=== PATIENT | female | born 1975 | race Caucasian/White ===

== ENCOUNTER 2016-11-04 21:15 | Emergency (ER) ==
[2016-11-04 21:37] VITALS: BP 128/88; TEMP 100; BMI 52.7
[2016-11-04] MEDS ORDERED: BACTRIM DS 800/160 MG PO STA (21:39)
[2016-11-04] MEDS ORDERED: TYLENOL PO STA (21:39)
--- NOTE | 2016-11-04 21:43 | ED.PDOC ---
General ED Provider: Dr. ALMITA CHICAS Chief Complaint: Allergic Reaction Stated Complaint: Patient had Mri with IV contrast yesterday @[facility], she started having some pain and itching and after some time, the right hand was red and warm, and today the redness getting up in arm, more pain in hand. Time Seen by Physician: 21:38 Mode of Arrival: Walk-In Information Source: Patient Primary Care Provider: ANDRY YANG Nursing and Triage Documentation Reviewed and Agree: Yes Review of Systems - Review Of Systems Constitutional: Reports: No symptoms Eyes: Reports: No symptoms Ears, Nose, Mouth, Throat: Reports: No symptoms Respiratory: Reports: No symptoms Cardiac: Reports: No symptoms GI: Reports: No symptoms : Reports: No symptoms Musculoskeletal: Reports: No symptoms Skin: Reports: Change in color, Lesions, Rash Neurological: Reports: No symptoms Endocrine: Reports: No symptoms Hematologic/Lymphatic: Reports: No symptoms All Other Systems: Reviewed and Negative Past Medical History - Past Medical History Previously Healthy: No Endocrine: Reports: None Cardiovascular: Reports: Hypertension Respiratory: Reports: COPD Hematological: Reports: None Gastrointestinal: Reports: None Genitourinary: Reports: None Neuro/Psych: Reports: None Musculoskeletal: Reports: None Cancer: Reports: None Last Menstrual Period: hyst 11 yrs ago - Surgical History General Surgical History: Reports: None - Family History Family History: Reports: None - Social History Smoking Status: Never smoker Hx Substance Use: No Alcohol Screening: None - Immunizations Tetanus Shot up to Date: Yes Physical Exam - Physical Exam Appearance: Well-appearing, Obese Eyes: VIRIDIANA, EOMI, Conjunctiva clear ENT: Ears normal, Nose normal, Oropharynx normal Respiratory: Airway patent, Breath sounds clear, Breath sounds equal, Respirations nonlabored Cardiovascular: RRR, Pulses normal, No rub, No murmur GI/: Soft, Nontender, No masses, Bowel sounds normal, No Organomegaly Musculoskeletal: ROM intact, No edema, No calf tenderness, Limited ROM (rt hand dorsum, has some red spots, tender to touch.) Skin: Warm, Dry, Normal color Neurological: Sensation intact, Motor intact, Reflexes intact, Cranial nerves intact, Alert, Oriented Psychiatric: Affect appropriate, Mood appropriate Critical Care Note - Critical Care Note Total Time (mins): 0 Course - Course Hematology/Chemistry: 11/04/16 21:40 Orders, Labs, Meds: Lab Review 11/04/16 21:40 WBC 4.80 RBC 5.20 Hgb 13.4 Hct 41.1 MCV 79.0 L MCH 25.8 L MCHC 32.6 RDW Coeff of Don 17.0 H Plt Count 157 Immature Gran % (Auto) 0.2 Neut % (Auto) 59.7 Lymph % (Auto) 25.8 [place] % (Auto) 8.1 Eos % (Auto) 5.6 Baso % (Auto) 0.6 Immature Gran # (Auto) 0.0 Neut # 2.9 Lymph # 1.2 [place] # 0.4 Eos # 0.3 Baso # 0.0 Orders Category Date Time Status CBC W/ AUTO DIFF Stat LAB 11/04/16 21:40 Completed COMPREHENSIVE METABOLIC PANEL Stat LAB 11/04/16 21:40 Received Acetaminophen [Tylenol] MEDS 11/04/16 21:39 Discontinued 500 mg PO ONCE STA Sulfamethoxazole/Trimethoprim [Bactrim Ds 800/160 mg] MEDS 11/04/16 21:39 Discontinued 1 tab PO ONCE STA Medications Discontinued Medications Generic Name Dose Route Start Last Admin Trade Name Freq PRN Reason Stop Dose Admin Acetaminophen 500 mg 11/04/16 21:39 11/04/16 21:48 Tylenol PO 11/04/16 21:40 500 mg ONCE STA Administration Trimethoprim/Sulfamethoxazole 1 tab 11/04/16 21:39 11/04/16 21:48 Bactrim Ds 800/160 Mg PO 11/04/16 21:40 1 tab ONCE STA Administration Vital Signs: Temp Pulse Resp BP Pulse Ox 11/04/16 21:15 100 F H 80 20 128/88 97 Departure - Departure Time of Disposition: 22:13 Disposition: HOME SELF-CARE Discharge Problem: Superficial thrombophlebitis Qualifiers: Superficial thrombophlebitis-Involved body area: upper extremity Laterality: right Qualifier Code: (I80.8) Phlebitis and thrombophlebitis of other sites Instructions: Superficial Thrombophlebitis (ED) Condition: Stable Pt referred to PMD for follow-up: Yes Additional Instructions: hot compress Percocet po bid prn Bactrim ds po bid x 7 days IF THE PAIN AND REDNESS GETS WORSE NEEDS TO COME BACK, RISK OF CLOTS DISCUSSED. Prescriptions: Sulfamethoxazole/Trimethoprim [Bactrim Ds 800/160 mg] 1 tab PO Q12HR #20 tablet Oxycodone HCl/Acetaminophen [Percocet 5-325 mg Tablet] 1 tab PO TID PRN #12 tablet PRN Reason: PAIN Allergies/Adverse Reactions: Allergies amoxicillin [Amoxicillin] Adverse Reaction (Verified 11/04/16 21:26) Difficulty Breathing butorphanol tartrate [From Stadol] Adverse Reaction (Verified 11/04/16 21:26) Nausea hallucinations codeine Adverse Reaction (Verified 11/04/16 21:26) Vomiting hydrocodone bitartrate [From Lortab] Adverse Reaction (Verified 11/04/16 21:26) Vomiting Home Medications: Ambulatory Orders Albuterol Sulfate 0.083% Neb [Albuterol 0.083% Neb] 1 vial INH Q4H PRN 11/04/16 Albuterol Sulfate [Proair Hfa] 2 puff IH Q4H PRN 11/04/16 Budesonide/Formoterol Fumarate [Symbicort 160-4.5 Mcg Inhaler] 2 puff IH DAILY 11/04/16 Nifedipine [Procardia Xl] 30 mg PO DAILY 11/04/16 Oxycodone HCl/Acetaminophen [Percocet 5-325 mg Tablet] 1 tab PO TID PRN #12 tablet 11/04/16 Sulfamethoxazole/Trimethoprim [Bactrim Ds 800/160 mg] 1 tab PO Q12HR #20 tablet 11/04/16 Disposition Discussed With: Patient
[2016-11-04 21:57] LABS: BASOPHILS % (AUTO) 0.6 % (0.0-3.0); EOSINOPHILS # (AUTO) 0.3 K/ul (0.0-0.7); EOSINOPHILS % (AUTO) 5.6 % (0.0-7.0); HEMATOCRIT 41.1 % (37.0-47.0); HEMOGLOBIN 13.4 g/dl (12.0-16.0); IMMATURE GRANULOCYTE % (AUTO) 0.2 % (0.0-5.0); LYMPHOCYTES # (AUTO) 1.2 K/uL (0.60-3.4); LYMPHOCYTES % (AUTO) 25.8 (10.0-50.0); MEAN CORPUSCULAR HEMOGLOBIN 25.8 pg (27.0-31.0); MEAN CORPUSCULAR HGB CONC 32.6 (31.8-35.4); MONOCYTES # (AUTO) 0.4 K/uL (0.4-2.0); MONOCYTES % (AUTO) 8.1 (0-10); NEUTROPHILS # (AUTO) 2.9 K/ul (2.0-6.9); NEUTROPHILS % (AUTO) 59.7; PLATELET COUNT 157 10^3/uL (140-440)
[2016-11-04 22:16] LABS: ALBUMIN 3.9 g/dL (3.4-5.0); ALBUMIN/GLOBULIN RATIO 1.08; ANION GAP 13.7; BILIRUBIN,TOTAL 0.75 mg/dL (0.00-1.20); BUN/CREATININE RATIO 12.82; CALCIUM 9.2 mg/dL (8.2-10.2); CREATININE 0.78 mg/dL (0.60-1.30); POTASSIUM 3.7 mmol/L (3.5-5.10); TOTAL PROTEIN 7.5 g/dL (6.4-8.2)
== END 2016-11-04 22:34 | disposition home or self-care (01) ==
LOC: ED 21:15
DX: T81.72XA Complication of vein following a procedure, not elsewhere classified, initial encounter (principal); I80.8 Phlebitis and thrombophlebitis of other sites; I10 Essential (primary) hypertension
CPT/HCPCS: 36415; 80053; 85025; 99282

== ENCOUNTER 2017-05-11 18:54 | Outpatient (CLI) ==
[2017-05-11 19:13] LABS: HEMATOCRIT 39.4 % (37.0-47.0); HEMOGLOBIN 13.1 g/dl (12.0-16.0); MEAN CORPUSCULAR HEMOGLOBIN 27.8 pg (27.0-31.0); MEAN CORPUSCULAR HGB CONC 33.2 (31.8-35.4); MEAN CORPUSCULAR VOLUME 83.5 fl (81.0-99.0); RED BLOOD COUNT 4.72 10^6/ul (4.20-5.40); WHITE BLOOD COUNT 5.62 K/ul (4.6-10.2)
[2017-05-11 19:53] LABS: ALBUMIN 3.9 g/dL (3.4-5.0); ALBUMIN/GLOBULIN RATIO 1.3; ANION GAP 13.9; BILIRUBIN,TOTAL 0.45 mg/dL (0.00-1.20); BUN/CREATININE RATIO 18.75; CALCIUM 9.3 mg/dL (8.2-10.2); CREATININE 0.8 mg/dL (0.60-1.30); FERRITIN 30.5 ng/mL (4.63-204.00); POTASSIUM 3.9 mmol/L (3.5-5.10); TOTAL PROTEIN 6.9 g/dL (6.4-8.2)
== END 2017-05-11 18:55 | disposition home or self-care (01) ==
LOC: LAB 18:54
PROVIDERS: ATTEND Clinical Nurse Specialist Adult Health
DX: D51.9 Vitamin B12 deficiency anemia, unspecified (principal); D50.9 Iron deficiency anemia, unspecified; E56.9 Vitamin deficiency, unspecified; E55.9 Vitamin D deficiency, unspecified
CPT/HCPCS: 36415; 80053; 80323; 82728; 83540; 85027

== ENCOUNTER 2018-01-16 11:18 | Outpatient (CLI) ==
--- NOTE | 2018-01-16 13:09 | DI ---
EXAM: Radiographs, left ankle HISTORY: Initial presentation for left ankle pain following twisting injury. COMPARISON: 05/14/2014. TECHNIQUE: Three views. FINDINGS: Bone mineralization is normal. No fracture or dislocation identified. Joint spaces are m aintained although there is mild to moderate spurring throughout the joints of the hindfoot and midfo ot. Small plantar calcaneal spur noted. No localized soft tissue abnormality is detected. IMPRESSION: No fracture or dislocation.
--- NOTE | 2018-01-16 13:22 | DI ---
EXAM: Three views of the left knee. History: Left knee trauma. Findings: No acute fracture or dislocation. No abnormal calcifications or radiopaque foreign bodies . Joint spaces are relatively preserved. Impression: No acute osseous abnormality
== END 2018-01-16 11:19 | disposition home or self-care (01) ==
LOC: RAD 11:18
PROVIDERS: ATTEND Family Medicine
DX: M25.572 Pain in left ankle and joints of left foot (principal); M25.562 Pain in left knee